=== PATIENT | male | born 1990 | race Caucasian/White ===

== ENCOUNTER 2019-05-18 15:01 | Emergency (ER) | payer MEDICAID ==
[~2019-05-18] VITALS: Ht 162.6 cm; Wt 70.8 kg
[2019-05-18 15:08] VITALS: BP 134/88
--- NOTE | 2019-05-18 15:21 | NUR ---
bs 108
[2019-06-04] MEDS ORDERED: CHLO25CA22 PO (11:12)
[2019-06-04] MEDS ORDERED: Folic Acid PO (11:12)
[2019-06-04] MEDS ORDERED: Thiamine HCL PO (11:12)
== END 2019-05-18 19:22 | disposition home or self-care (01) ==
LOC: ER 15:03 → EDBD 15:03 → ER 19:22
DX: T51.8X1A Toxic effect of other alcohols, accidental (unintentional), initial encounter (principal); Y92.89 Other specified places as the place of occurrence of the external cause
CPT/HCPCS: 82962-TC

== ENCOUNTER 2019-05-29 15:58 | Inpatient (IN) | payer MEDICAID ==
[~2019-05-29] VITALS: Ht 175.3 cm; Wt 91.6 kg
[2019-05-29] MEDS ORDERED: KETOROLAC TROMETHAMINE INJ 30 MG/ML VIAL IV ONE ×2 (16:30→22:00)
[2019-05-29] MEDS ORDERED: ONDANSETRON HCL/PF 4 MG/2 ML VIAL IVP ONE (16:30)
[2019-05-29] MEDS ORDERED: IV NS 0.9% 1,000 ML BAG IV ONE ×2 (16:30→22:30)
[2019-05-29 16:46] LABS: BASOPHILS % (AUTO) 0.3 % (0.0-2.0); HEMATOCRIT 40 % (39-51); HEMOGLOBIN 13.5 g/dL (13.5-17.5); LYMPHOCYTES % (AUTO) 10.6 % (20.0-44.0); MEAN CORPUSCULAR HGB CONC 34 g/dl (31.0-36.0); MEAN CORPUSCULAR VOLUME 80 fL (80-96); MONOCYTES # (AUTO) 1.1 /CMM (0.1-1.30); MONOCYTES % (AUTO) 11.9 % (2.0-12.0); NEUTROPHILS # (AUTO) 7.3 /CMM (1.8-8.9); NEUTROPHILS % (AUTO) 77.2 % (43.0-81.0); PLATELET COUNT (AUTO) 91 /CMM (150-450); RED BLOOD CELL COUNT(AUTO) 4.98 MIL/uL (4.5-6.0); WHITE BLOOD COUNT (AUTO) 9.4 K/uL (4.3-11.0)
[2019-05-29] MEDS ORDERED: KETOROLAC TROMETHAMINE INJ 30 MG/ML VIAL ONE ×2 (16:49→22:02)
[2019-05-29 16:54] LABS: CALCIUM, SERUM 8.8 mg/dL (8.5-10.1); CARBON DIOXIDE 28 mmol/L (21-32); CHLORIDE 97 mmol/L (98-107); CREATININE 0.7 mg/dL (0.6-1.3); GLUCOSE 110 mg/dL (74-106); POTASSIUM 3.2 mmol/L (3.5-5.1); SODIUM SERUM 140 mmol/L (136-145); UREA NITROGEN, BLOOD 15 mg/dL (7-18)
[2019-05-29 17:02] LABS: ALANINE AMINOTRANSFERASE 199 U/L (12-78); ALBUMIN 3.1 g/dL (3.4-5.0); ALKALINE PHOSPHATASE 136 U/L (46-116); ASPARTATE AMINOTRANSFERASE 295 U/L (15-37); BILIRUBIN,DIRECT 0.2 mg/dL (0.0-0.2); BILIRUBIN,TOTAL 0.5 mg/dL (0.2-1.0); LIPASE 1436 U/L (73-393); TOTAL PROTEIN, SERUM 7.5 g/dL (6.4-8.2)
--- NOTE | 2019-05-29 17:07 | NUR ---
Status quo reclining in bed NO obvious distress pt served dinner
[2019-05-29 17:26] LABS: LYMPHOCYTES % (MANUAL) 10 % (16-48); MONOCYTES % (MANUAL) 7 % (0-11.0); NEUTROPHILS % (MANUAL) 83 (42-76)
[2019-05-29] MEDS ORDERED: POTASSIUM CHLORIDE 20 MEQ TAB.PRT.SR PO ONE ×2 (20:00→20:02)
[2019-05-29] MEDS ORDERED: Magnesium 1GM/D5W 100ML PREMIX PIGGYBACK IV ONE (20:00)
[2019-05-29] MEDS ORDERED: Magnesium 1GM/D5W 100ML PREMIX 100 ML IV ONE (20:02)
--- NOTE | 2019-05-29 20:04 | NUR ---
Patient is resting comfortably in bed with eyes closed. Easily aroused. VSS. NO ACUTE DISTRESS NOTED AT THIS TIME. AOX4. VSS
--- NOTE | 2019-05-29 22:00 | NUR ---
PT MEDICATED ORDERED. -ACUTE DISTRESS NOTED. AOX4. VSS. AMBULATORY. GIVEN FOOD/DRINK. WILL CONTINUE TO MONITOR.
[2019-05-29] MEDS ORDERED: LORAZEPAM 1 MG TABLET ONE (22:11)
[2019-05-29] MEDS ORDERED: LORAZEPAM INJ 2 MG/ML VIAL IV ONE (22:30)
[2019-05-29] MEDS ORDERED: LORAZEPAM 1 MG TABLET PO ONE (22:30)
[2019-05-29 23:01] LABS: APPEARANCE,URINE Clear (CLEAR); BILIRUBIN,URINE Negative (NEGATIVE); BLOOD, URINE Moderate Ery/uL (NEGATIVE); COLOR,URINE Yellow (YELLOW); KETONES,URINE Trace (NEGATIVE); LEUKOCYTE ESTERASE ,URINE Negative (NEGATIVE); NITRITE, URINE Negative (NEGATIVE); PH,URINE 8.5 (5.0-8.0); PROTEIN,URINE 100 mg/dl (NEGATIVE); UGLUCOSE Negative (NEGATIVE)
[2019-05-29] MEDS ORDERED: Z GUARD REMEDY 2 OZ OINT TP PRN (23:30)
[2019-05-29] MEDS: Thiamine 100 MG in IV D5W 50 ML IV SCH (23:30)
[2019-05-29] MEDS ORDERED: IV NS 0.9% 1,000 ML IV PRN (23:30)
[2019-05-29] MEDS ORDERED: MAGNESIUM HYDROXIDE 30 ML UDC PO PRN (23:30)
[2019-05-29] MEDS ORDERED: FOLIC ACID 1 MG TABLET PO ONE (23:30)
--- NOTE | 2019-05-29 23:44 | NUR ---
Patient is resting comfortably in bed with eyes closed. Easily aroused. VSS. AOX4. -ACUTE DISTRESS NOTED AT THIS TIME. WILL CONTINUE TO MONITOR.
[2019-05-29 23:47] LABS: BACTERIA,URINE None seen /HPF (None Seen); MUCUS,URINE Few /LPF (None Seen); SQUAMOUS EPITHELIAL CELL,UR Few /HPF (None Seen); URINE AMORPHOUS PHOSPHATES Many /HPF (None Seen); WBC,URINE 0-2 /HPF (0-3)
[2019-05-30] MEDS ORDERED: BISACODYL SUPP (10 MG) 10 MG/SUPP.RECT SUPP.RECT RC ONE
--- NOTE | 2019-05-30 00:03 | NUR ---
Patient is resting comfortably in bed with eyes closed. Easily aroused. VSS
[2019-05-30] MEDS ORDERED: FOLIC ACID 1 MG TABLET ONE (00:21)
[2019-05-30] MEDS ORDERED: Thiamine 100 MG/ML VIAL ONE (00:21)
[2019-05-30] MEDS ORDERED: MORPHINE SULFATE INJ 4 MG/ML DISP.SYRIN ONE (00:22)
[2019-05-30] MEDS ORDERED: ONDANSETRON HCL/PF 4 MG/2 ML VIAL ONE (00:22)
[2019-05-30] MEDS ORDERED: MAG HYDROX/AL HYDROX/SIMETH 30 ML UDC ONE (03:13)
[2019-05-30] MEDS: MAG HYDROX/AL HYDROX/SIMETH 30 ML UDC PO PRN (03:14)
[2019-05-30] MEDS: LORAZEPAM INJ 2 MG/ML VIAL IV PRN ×5 (04:47→22:33)
[2019-05-30] MEDS ORDERED: LORAZEPAM INJ 2 MG/ML VIAL ONE ×2 (04:48→06:27)
--- NOTE | 2019-05-30 05:02 | NUR ---
PER HOUSE SUP. ROOMS WILL BE AVAILABLE IN THE MORNING AFTER 0700
[2019-05-30 05:26] LABS: BASOPHILS % (AUTO) 0.1 % (0.0-2.0); EOSINOPHILS % (AUTO) 0.1 % (0.0-6.0); HEMATOCRIT 37 % (39-51); HEMOGLOBIN 12.8 g/dL (13.5-17.5); LYMPHOCYTES # (AUTO) 0.9 /CMM (0.8-4.8); LYMPHOCYTES % (AUTO) 8.9 % (20.0-44.0); MEAN CORPUSCULAR HGB CONC 34 g/dl (31.0-36.0); MEAN CORPUSCULAR VOLUME 80 fL (80-96); MONOCYTES # (AUTO) 1.2 /CMM (0.1-1.30); MONOCYTES % (AUTO) 12.1 % (2.0-12.0); NEUTROPHILS # (AUTO) 8.1 /CMM (1.8-8.9); NEUTROPHILS % (AUTO) 78.8 % (43.0-81.0); PLATELET COUNT (AUTO) 87 /CMM (150-450); RED BLOOD CELL COUNT(AUTO) 4.67 MIL/uL (4.5-6.0); WHITE BLOOD COUNT (AUTO) 10.2 K/uL (4.3-11.0)
[2019-05-30 05:34] LABS: BILIRUBIN,DIRECT 0.4 mg/dL (0.0-0.2); CALCIUM, SERUM 8.4 mg/dL (8.5-10.1); CREATININE 1.2 mg/dL (0.6-1.3); MAGNESIUM 1.3 mg/dL (1.8-2.4); PHOSPHORUS 3.2 mg/dL (2.5-4.9); POTASSIUM 3.2 mmol/L (3.5-5.1)
[2019-05-30 05:44] LABS: THYROID STIMULATING HORMONE 1.439 uIU/mL (0.358-3.74)
--- NOTE | 2019-05-30 06:17 | NUR ---
Patient is resting comfortably in bed with eyes closed. Easily aroused. VSS. PT AMBULATORY TO RESTROOM.
[2019-05-30] MEDS ORDERED: LORAZEPAM INJ 2 MG/ML VIAL IV ONE (06:30)
[2019-05-30] MEDS ORDERED: IV NS 0.9% 500 ML BAG IV ONE (06:30)
[2019-05-30] MEDS ORDERED: POTASSIUM CHLORIDE 20 MEQ TAB.PRT.SR PO ONE (07:30)
--- NOTE | 2019-05-30 07:45 | NUR ---
BED 794-2
--- NOTE | 2019-05-30 08:08 | NUR ---
REPORT GIVEN TO JESSI PILLAI FOR ANDREINA
--- NOTE | 2019-05-30 08:28 | NUR ---
PATIENT TRANSFERRED TO [place] [address]-2 VIA ACLS PROTOCOL. NO DISTRESS NOTED. PATIENT A/OX4, AMBULATORY WITH STEADY GAIT. NEEDS ATTENDED, ENDORSED TO JESSI.
--- NOTE | 2019-05-30 08:45 | NUR ---
RN ADMITTING NOTES ADMITTED A 29 YEARS OLD, MALE TO UNIT VIA GURNEY ACCOMPANIED BY 2 HOSPITAL STAFF. A.O X4. ABLE TO MAKE NEEDS KNOWN. NO SIGNS OF DISTRESS NOTED AT THIS TIME. ON TELE MONITORING WITH CURRENT READING OF SR, HR OF 90'S. V/S TAKEN, STABLE AND RECORDED. ORIENTED TO UNIT, ROOM AND STAFF. REFUSED SKIN ASSESSMENT ON OTHER PARTS OF THE BODY BUT ALLOW PICTURES ON BLE. TOOK PICTURES AND FILED ON CHART. LUNGS CLEAR ON AUSCULTATION. IV ACCESS ON LEFT AC. PATENT AND INTACT. IVF TO BE STARTED. SAFETY MEASURES IN PLACE, BED PLACED IN LOWEST LOCKED POSITION WITH SIDE RAILS UP X2. CALL LIGHT PLACED WITHIN EASY REACH. WILL CONTINUE TO MONITOR.
[2019-05-30] MEDS: MORPHINE SULFATE INJ 2 MG/ML DISP.SYRIN IV PRN ×2 (08:57→20:16)
[2019-05-30] MEDS: FAMOTIDINE (20 MG) 20 MG TABLET PO SCH ×2 (09:00→16:43)
[2019-05-30] MEDS: DOCUSATE SODIUM 100 MG CAPSULE PO SCH ×2 (09:00→16:43)
[2019-05-30] MEDS: IV NS 0.9% 1,000 ML IV PRN (09:02)
[2019-05-30] MEDS: Magnesium 1GM/D5W 100ML PREMIX 100 ML IV SCH ×4 (11:02→14:08)
[2019-05-30 12:59] VITALS: BP 128/80
[2019-05-30 16:00] VITALS: BP 161/77
[2019-05-30 16:02] LABS: APPEARANCE,URINE SL CLOUDY (CLEAR); BILIRUBIN,URINE NEGATIVE (NEGATIVE); BLOOD, URINE TRACE-INTA Ery/uL (NEGATIVE); COLOR,URINE YELLOW (YELLOW); KETONES,URINE 40 (NEGATIVE); LEUKOCYTE ESTERASE ,URINE NEGATIVE (NEGATIVE); NITRITE, URINE NEGATIVE (NEGATIVE); PH,URINE 8.5 (5.0-8.0); PROTEIN,URINE NEGATIVE (NEGATIVE); UGLUCOSE NEGATIVE (NEGATIVE)
[2019-05-30 16:08] LABS: RBC,URINE 0-2 /HPF (0-2)
[2019-05-30 16:09] LABS: BACTERIA,URINE 1+ /HPF (None Seen); SQUAMOUS EPITHELIAL CELL,UR Few /HPF (None Seen); URINE AMORPHOUS PHOSPHATES Moderate /HPF (None Seen); WBC,URINE NONE SEEN /HPF (0-3)
[2019-05-30 16:10] LABS: EOSINOPHIL,URINE None Seen
[2019-05-30 16:14] LABS: CREATININE, URINE 81.9 MG/DL (30.0-125.0); URINE TOTAL PROTEIN 36.7 mg/dL (0-11.9)
--- NOTE | 2019-05-30 19:01 | NUR ---
RN CLOSING NOTES PATIENT IN BED RESTING COMFORTABLY IN MODERATE HIGH BACK REST. A.O X4. ABLE TO MAKE NEEDS KNOWN. NO SIGNS OF DISTRESS NOTED THROUGHOUT THE SHIFT. IV FLUIDS ON LEFT AC #20 WITH NS RUNNING @150ML/HR.. PATENT AND INTACT. SAFETY MEASURES IN PLACE, BED PLACED IN LOWEST LOCKED POSITION WITH SIDE RAILS UP X2. CALL LIGHT WITHIN REACH. WILL ENDORSE TO DIRECTOR PRIVATE MUSIC THERAPY AGENCY NURSE FOR ANDREINA.
--- NOTE | 2019-05-30 19:40 | NUR ---
RN OPENING NOTES RECEIVED REPORT FROM DAYSHIFT FREYA BOWEN. FOUND Pt AWAKE, RESTING IN BED, WATCHING TV. NO S/S OF ACUTE DISTRESS OR SOB NOTED. Pt IS A/OX4, ARABIC SPEAKING ONLY, ABLE TO MAKE NEEDS KNOWN IN ARABIC AND COMMUNICATE ONLY IN ARABIC. IV ACCESS ON LAC #20G, IVF NS RUNNING @150ML/HR, INFUSING WELL. SAFETY MEASURES IN PLACE. BED LOW, LOCKED, HOB ELEVATED, SIDE RAILS UP, CALL LIGHT AND BEDSIDE TABLE WITHIN REACH. WILL CONTINUE TO MONITOR Pt's CONDITION AND SAFETY THROUGHOUT THE NIGHT.
[2019-05-30 20:00] VITALS: BP 143/82
[2019-05-30] MEDS: ONDANSETRON HCL/PF 4 MG/2 ML VIAL IVP PRN (20:16)
--- NOTE | 2019-05-30 20:30 | NUR ---
RN NOTES ORAL TEMP OF 99.7. Pt IS CURRENTLY NPO. PROVIDED ICE PACKS & COOLING MEASURES WITH A COLD BED BATH. WILL RECHECK TEMP.
--- NOTE | 2019-05-30 21:30 | NUR ---
RN NOTES RECHECKED ORAL TEMP AFTER COOLING MEASURES PROVIDED. ORAL TEMP 98.1F
[2019-05-30] MEDS: Thiamine 100 MG in IV D5W 50 ML IV SCH (22:33)
[2019-05-31] MEDS: IV NS 0.9% 1,000 ML IV PRN ×2 (01:03→12:03)
[2019-05-31] MEDS: LORAZEPAM INJ 2 MG/ML VIAL IV PRN ×3 (02:03→15:42)
[2019-05-31] MEDS: MORPHINE SULFATE INJ 2 MG/ML DISP.SYRIN IV PRN (04:22)
[2019-05-31 06:14] LABS: BASOPHILS % (AUTO) 0.1 % (0.0-2.0); EOSINOPHILS % (AUTO) 0.3 % (0.0-6.0); HEMATOCRIT 37 % (39-51); HEMOGLOBIN 12.8 g/dL (13.5-17.5); LYMPHOCYTES # (AUTO) 1.5 /CMM (0.8-4.8); LYMPHOCYTES % (AUTO) 16.1 % (20.0-44.0); MEAN CORPUSCULAR HGB CONC 34 g/dl (31.0-36.0); MEAN CORPUSCULAR VOLUME 80 fL (80-96); MONOCYTES # (AUTO) 1.3 /CMM (0.1-1.30); MONOCYTES % (AUTO) 14.3 % (2.0-12.0); NEUTROPHILS # (AUTO) 6.4 /CMM (1.8-8.9); NEUTROPHILS % (AUTO) 69.2 % (43.0-81.0); PLATELET COUNT (AUTO) 106 /CMM (150-450); RED BLOOD CELL COUNT(AUTO) 4.64 MIL/uL (4.5-6.0); WHITE BLOOD COUNT (AUTO) 9.2 K/uL (4.3-11.0)
--- NOTE | 2019-05-31 06:35 | NUR ---
RN CLOSING NOTES NO OTHER SIGNIFICANT CHANGES IN Pt's CONDITION. Pt's VS REMAINED STABLE. TEMP REMAINED STABLE @98.1F S/P COOLING MEASURES. ALL NEEDS MET AND ATTENDED TO. SAFETY MEASURES IN PLACE. WILL ENDORSE TO DAYSHIFT RN FOR Pt's ANDREINA.
[2019-05-31 06:53] LABS: ALBUMIN 3.1 g/dL (3.4-5.0); BILIRUBIN,TOTAL 1.1 mg/dL (0.2-1.0); CALCIUM, SERUM 8.6 mg/dL (8.5-10.1); CREATININE 0.7 mg/dL (0.6-1.3); MAGNESIUM 1.9 mg/dL (1.8-2.4); PHOSPHORUS 3.1 mg/dL (2.5-4.9); POTASSIUM 2.9 mmol/L (3.5-5.1); TOTAL PROTEIN, SERUM 7.4 g/dL (6.4-8.2)
--- NOTE | 2019-05-31 07:32 | NUR ---
RN NOTES NEW IV ACCESS STARTED ON RHAND #22G
--- NOTE | 2019-05-31 08:43 | NUR ---
MS RN OPENING NOTES RECEIVED PATIENT IN BED, AWAKE, A/O X3. PATIENT IS ON ROOM AIR BREATHING EVENLY WITH NO SIGN OF SOB AT THIS TIME. PATIENT DOES NOT COMPLAIN OF ANY PAIN. SL ON R HAND # 22 PRESENT AND INTACT. SAFETY PRECAUTIONS IN PLACE, BED IN LOW POSITION AND LOCKED, HOB ELEVATED AT 45 DEGREES, RAILS UP X 2, CALL LIGHT WITHIN REACH. WILL CONTINUE TO MONITOR PATIENT.
[2019-05-31] MEDS: DOCUSATE SODIUM 100 MG CAPSULE PO SCH ×2 (09:00→17:00)
[2019-05-31] MEDS: FAMOTIDINE (20 MG) 20 MG TABLET PO SCH ×2 (09:00→17:00)
--- NOTE | 2019-05-31 09:24 | NUR ---
MS RN NOTES PATIENT BECAME ANXIOUS AND AGITATED. PATIENT STATES HE HEARS VOICES WHEN HE IS CLOSING HIS EYES. ADMINISTERED PRN ATIVAN AND NOTIFIED MD REGARDING HIS CONDITION. WILL CONTINUE TO MONITOR PATIENT.
[2019-05-31 10:36] VITALS: BP 126/93
[2019-05-31] MEDS: POTASSIUM CL. PREMIX PERIPHER. 50 ML IV SCH ×3 (11:30→13:50)
--- NOTE | 2019-05-31 12:00 | NUR ---
Social service consult requested by Dr. Robles for homelessness and alcohol abuse. Per chart review and MD notes, pt. is a 29-year-old male who denies any medical history and who presented to the ER yesterday after being brought in by EMS from streets for alcohol the patient and epigastric pain. At time of admission, pt appeared intoxicated and had heavy odor of alcohol on his breath. MANAGER PIPELINE met with the pt. bedside and introduced herself and her role. Pt. has a sitter bedside for safety. Pt. is Kazakh speaking only. Kaleb Harmon assisted in translation. Pt. is alert and oriented x 3. Pt. appears to be having alcohol withdrawals. Pt appears to be fixated on his symptoms. MANAGER PIPELINE had to redirect pt several times. Pt. states he has been homeless for the past 3 weeks. Prior to being homeless, pt was [facility] [address] [facility]. Pt. drinks alcohol on a daily basis and has been drinking for since April. Pt. states, he drinks all kinds of alcohol. Pt. denies any drug and cigarette use at this time. Pt. states he is feeling depressed and anxious. Pt currently denies any suicidal and homicidal ideations and visual/auditory hallucinations at this time. MANAGER PIPELINE to discuss discharge plan with pt. at a later time when pt. is medically and psychiatrically cleared. Pt. is awaiting a psychiatry consult. No other social service needs are requested at this time. MANAGER PIPELINE is available, if needed.
[2019-05-31] MEDS ORDERED: Folic acid 1 MG in IV D5W 50 ML IV SCH (12:30)
[2019-05-31] MEDS: CHLORDIAZEPOXIDE HCL 25 MG CAPSULE PO SCH ×2 (13:00→22:25)
--- NOTE | 2019-05-31 17:12 | NUR ---
MS RN NOTES JUST RECEIVED A CALL FROM THE LAB AT 1708 FROM [facility], REGARDING A CRITICAL LAB VALUE OF ELEVATED CK-MB OF 38.6 ARTURO ORTEGA NOTIFIED AT 1710
--- NOTE | 2019-05-31 18:56 | NUR ---
MS RN NOTES PATIENT WAS SEEN AND EVALUATED TODAY BY DR. WATT. HE SAID THE PATIENT IS NEAR HIS DTs AND SUGGESTED CONTACTING HIS PRIMARY PHYSICIAN TO INCREASE ATIVAN TO 2 MG Q HR PRN. PRIMARY CONTACTED. AWAITING REPLY.
--- NOTE | 2019-05-31 19:11 | NUR ---
MS RN CLOSING NOTES PATIENT IN BED, AWAKE, A/O X 1, CONFUSED AT TIMES AND IN WITHDRAWAL. PATIENT IS ON ROOM AIR BREATHING EVENLY WITH NO SIGN OF SOB AT THIS TIME. PATIENT IS PAIN FREE AT THIS TIME. HE BECOMES AGITATED AND ANXIOUS AT TIMES AND HE PULLED HIS IV TWICE TODAY WITH REFUSAL OF REINSERTION. HE CALMS DOWN WITH PRN IV AND A NEW LINE WAS STARTED ON LAC # 20. NS INFUSING AT 100 MLS/HR. PATIENT EVALUATED BY PSYCHIATRIST TODAY. PRIMARY NOTIFIED. PATIENT HAS A 1:1 SITTER. REMAINS NPO. SAFETY PRECAUTIONS IN PLACE, BED IN LOW POSITION AND LOCKED, RAILS UP X 2, CALL LIGHT WITHIN REACH. ALL NEEDS ATTENDED TO. WILL ENDORSE TO [employer] FOUNTAIN CLERK.
--- NOTE | 2019-05-31 19:35 | NUR ---
RN OPENING NOTES RECEIVED REPORT FROM [facility] FREYA CANA[place]. FOUND Pt AWAKE, RESTING IN BED, WATCHING TV. SITTER AT BEDSIDE. NO S/S OF ACUTE DISTRESS OR SOB NOTED. Pt IS A/OX2-3, WITH SOME FORGETFULNESS. CYMRAES SPEAKING ONLY, ABLE TO MAKE NEEDS KNOWN IN [place]RAES AND COMMUNICATE ONLY IN [place]MRAES. IV ACCESS ON RAC #20G, IVF NS RUNNING @100ML/HR, INFUSING WELL. SAFETY MEASURES IN PLACE. BED LOW, LOCKED, HOB ELEVATED, SIDE RAILS UP, CALL LIGHT AND BEDSIDE TABLE WITHIN REACH. WILL CONTINUE TO MONITOR Pt's CONDITION AND SAFETY THROUGHOUT THE NIGHT.
[2019-05-31 20:00] VITALS: BP 145/82
[2019-05-31] MEDS: Potassium Chloride 10 MEQ, LIDOCAINE HCL/PF 1% 1 ML in IV D5W 50 ML IV SCH ×2 (22:14→23:11)
[2019-06-01] MEDS: Potassium Chloride 10 MEQ, LIDOCAINE HCL/PF 1% 1 ML in IV D5W 50 ML IV SCH ×2 (00:12→01:13)
[2019-06-01] MEDS: OLANZAPINE 5 MG/TAB.RAPDIS PO PRN ×2 (00:35→20:25)
--- NOTE | 2019-06-01 00:40 | NUR ---
RN NOTES Pt IS BECOMING INCREASINGLY AGITATED AND PARANOID. Pt IS STATING THAT WE ARE GOING TO KILL HIM AND THAT WE ARE GOING TO CALL THE POLICE ON HIM AND GET HIM DEPORTED. ADMINISTERED ZYPREXA 5MG ORDERED BY PSYSCH DR WATT FOR PRN USE Q12H.
[2019-06-01] MEDS: Thiamine 100 MG in IV D5W 50 ML IV SCH ×2 (01:14→23:30)
[2019-06-01] MEDS: MORPHINE SULFATE INJ 2 MG/ML DISP.SYRIN IV PRN ×2 (02:59→08:42)
[2019-06-01] MEDS: CHLORDIAZEPOXIDE HCL 25 MG CAPSULE PO SCH ×3 (04:25→20:14)
[2019-06-01] MEDS: ONDANSETRON HCL/PF 4 MG/2 ML VIAL IVP PRN (05:39)
--- NOTE | 2019-06-01 06:00 | NUR ---
RN NOTES WAITING TO HEAR BACK FROM JOSE MENDEZ. Pt ATTEMPTED TO FLEE, RAN PAST THE SITTER & RAN OUT FROM HIS ROOM DOWN THE [place]. Pt's PRN ATIVAN HAS BEEN DC'd, WILL SEE IF Pt CAN GET A PRN ORDER.
--- NOTE | 2019-06-01 06:45 | NUR ---
RN NOTES INFORMED DR. ENEDELIA MENDEZ OF Pt's BEHAVIORAL PROBLEMS, BEING AGITATED AND AGGRESSIVE AND ATTEMPTING TO FLEE. VERBAL ORDER GIVEN FROM DR MENDEZ TO GIVE Pt X1 DOSE OF ZYPREXA 5MG IM. WILL CARRY OUT ORDER.
[2019-06-01] MEDS ORDERED: OLANZAPINE 10 MG VIAL IM ONE (07:00)
--- NOTE | 2019-06-01 07:02 | NUR ---
RN CLOSING NOTES NO S/S OF ACUTE DISTRESS OR SOB NOTED DURING THE SHIFT. Pt HAS BEEN AWAKE ALL NIGHT. ALL NEEDS MET AND ATTENDED TO. SAFETY MEASURES IN PLACE. SITTER AT BEDSIDE. CARRIED OUT ALL ORDERS GIVEN. WILL ENDORSE TO DAYSHIFT RN FOR Pt's ANDREINA.
--- NOTE | 2019-06-01 07:05 | NUR ---
RN NOTES ADMINISTERED ZYPREXA 5M IM X1 DOSE PER MD ORDER.
[2019-06-01 08:00] VITALS: BP 111/90
[2019-06-01 08:16] LABS: CALCIUM, SERUM 9.3 mg/dL (8.5-10.1); CREATININE 0.7 mg/dL (0.6-1.3); POTASSIUM 3.8 mmol/L (3.5-5.1)
[2019-06-01] MEDS: FAMOTIDINE (20 MG) 20 MG TABLET PO SCH ×2 (08:41→17:00)
[2019-06-01] MEDS: DOCUSATE SODIUM 100 MG CAPSULE PO SCH ×2 (08:41→17:00)
[2019-06-01] MEDS: LORAZEPAM INJ 2 MG/ML VIAL IV PRN ×2 (09:40→22:45)
[2019-06-01] MEDS ORDERED: Folic acid 1 MG in IV D5W 50 ML IV SCH (14:00)
[2019-06-01 16:00] VITALS: BP_SYST 110
[2019-06-01] MEDS: IV NS 0.9% 1,000 ML IV PRN (19:43)
--- NOTE | 2019-06-01 19:45 | NUR ---
MS RN OPENING NOTES PATIENT RECEIVED RESTING COMFORTABLY IN BED; NO S/S OF ACUTE RESPIRATORY DISTRESS NOTED; BREATHING EVEN AND UNLABORED; A/O X3, [place] SPEAKING; RAC #20 FLUSHING WELL; NO S/S OF REDNESS OR INFILTRATION; PATIENT REFUSED SKIN ASSESSMENT; SAFETY PRECAUTIONS IN PLACE, BED LOCKED IN LOW POSITION; BILATERAL UPPER SIDE RAILS UP; CALL LIGHT WITHIN EASY REACH; SITTER AT BEDSIDE; WILL CONTINUE TO MONITOR.
[2019-06-01 20:00] VITALS: BP 144/90
--- NOTE | 2019-06-01 20:30 | NUR ---
MS RN NOTES PATIENT AGITATED; ZYPREXA 5MG PO GIVEN. WILL CONTINUE TO MONITOR.
--- NOTE | 2019-06-01 22:45 | NUR ---
MS RN NOTES ATIVAN 2MG GIVEN IV PUSH; PATIENT ANXIOUS; VITALS BP: 134/75, PULSE: 102 BPM, RR: 18. SP02: 99% ON RA. WILL CONTINUE TO MONITOR.
[2019-06-02] MEDS: LORAZEPAM INJ 2 MG/ML VIAL IV PRN ×3 (02:37→21:03)
--- NOTE | 2019-06-02 02:38 | NUR ---
MS RN NOTES ATIVAN ADMINISTERED; PATIENT AGITATED/ANXIOUS. WILL CONTINUE TO MONITOR.
[2019-06-02] MEDS: CHLORDIAZEPOXIDE HCL 25 MG CAPSULE PO SCH ×3 (05:12→20:01)
--- NOTE | 2019-06-02 06:29 | NUR ---
MS RN CLOSING NOTES PATIENT RESTING COMFORTABLY IN BED; NO S/S OF ACUTE RESPIRATORY DISTRESS NOTED; BREATHING EVEN AND UNLABORED; PATIENT A/O X1, HAS CONTINUED CONFUSION AND AGITATION; R AC #20 INTACT AND PATENT, FLUSHING WELL; PATIENT REFUSED IV FLUIDS; PATIENT REFUSED SKIN ASSESSMENT; SITTER AT BED SIDE; ALL NEEDS ATTENDED TO; SAFETY PRECAUTIONS IN PLACE; BED LOCKED IN LOW POSITION, BILATERAL UPPER SIDE RAILS X2; CALL LIGHT WITHIN REACH; WILL ENDORSE CONTINUITY OF CARE TO ONCOMING SHIFT.
--- NOTE | 2019-06-02 07:30 | NUR ---
MS RN OPENING NOTE PATIENT IN ROOM SITTING IN CHAIR WITH ONE TO ONE SITTER. PATIENT IN NO ACUTE DISTRESS. NO SOB NOTED. PATIENT BREATHING IS EVEN AND UNLABORED. PATIENT SAFETY PRECAUTIONS IN PLACE. PATIENT BED IS LOCKED AND IN LOWEST POSITION. CALL LIGHT WITHIN REACH. WILL CONTINUE TO MONITOR.
[2019-06-02 07:50] LABS: BASOPHILS % (AUTO) 0.1 % (0.0-2.0); EOSINOPHILS % (AUTO) 0.6 % (0.0-6.0); HEMATOCRIT 40 % (39-51); HEMOGLOBIN 13.9 g/dL (13.5-17.5); LYMPHOCYTES # (AUTO) 1.8 /CMM (0.8-4.8); LYMPHOCYTES % (AUTO) 19.3 % (20.0-44.0); MEAN CORPUSCULAR HGB CONC 34 g/dl (31.0-36.0); MEAN CORPUSCULAR VOLUME 82 fL (80-96); MONOCYTES # (AUTO) 2.1 /CMM (0.1-1.30); MONOCYTES % (AUTO) 22.9 % (2.0-12.0); NEUTROPHILS # (AUTO) 5.3 /CMM (1.8-8.9); NEUTROPHILS % (AUTO) 57.1 % (43.0-81.0); PLATELET COUNT (AUTO) 234 /CMM (150-450); RED BLOOD CELL COUNT(AUTO) 4.94 MIL/uL (4.5-6.0); WHITE BLOOD COUNT (AUTO) 9.2 K/uL (4.3-11.0)
[2019-06-02 07:54] LABS: CALCIUM, SERUM 9.5 mg/dL (8.5-10.1); CREATININE 0.9 mg/dL (0.6-1.3); PHOSPHORUS 4.4 mg/dL (2.5-4.9); POTASSIUM 4.1 mmol/L (3.5-5.1)
[2019-06-02 08:00] VITALS: BP 132/70
[2019-06-02] MEDS: FAMOTIDINE (20 MG) 20 MG TABLET PO SCH ×2 (08:16→16:27)
[2019-06-02] MEDS: DOCUSATE SODIUM 100 MG CAPSULE PO SCH ×2 (08:16→16:27)
[2019-06-02] MEDS: THIAMINE HCL 100 MG TABLET PO SCH (09:06)
[2019-06-02] MEDS: FOLIC ACID 1 MG TABLET PO SCH (09:06)
[2019-06-02 09:59] LABS: BAND % (MANUAL) 1 % (0.0-5.0); LYMPHOCYTES % (MANUAL) 21 % (16-48); MONOCYTES % (MANUAL) 17 % (0-11.0); NEUTROPHILS % (MANUAL) 61 (42-76)
--- NOTE | 2019-06-02 13:48 | NUR ---
MS RN NOTE PATIENT IS STATING HE IS ANXIOUS AND RESTLESS. BP IS 132/71, HR IS 107. ATIVAN 2MG IV GIVEN. WILL CONTINUE TO MONITOR.
--- NOTE | 2019-06-02 15:47 | NUR ---
MS RN NOTE SPOKE WITH TRACEY, HERSON GARCIA TO UPGRADE DIET TO SOFT DIET.
[2019-06-02 16:00] VITALS: BP 142/68
--- NOTE | 2019-06-02 16:31 | NUR ---
MS RN NOTE PATIENT REFUSING IV FLUIDS. PATIENT DRINKING WATER THROUGHOUT SHIFT. PATIENT IN NO ACUTE DISTRESS. PATIENT REFUSING SKIN ASSESSMENT. EDUCATED RISKS VS BENEFITS. PATIENT CONTINUED TO REFUSE. WILL CONTINUE TO MONITOR.
--- NOTE | 2019-06-02 17:29 | NUR ---
MS RN NOTE PATIENT NOW COMPLIANT WITH IV FLUIDS AT THIS TIME.
--- NOTE | 2019-06-02 18:16 | NUR ---
MS RN CLOSING NOTE PATIENT IN BED RESTING COMFORTABLY. PATIENT IN NO ACUTE DISTRESS. NO SOB NOTED. PATIENT BREATHING IS EVEN AND UNLABORED. PATIENT MAINTAINED ON A 1:1 SITTER. PATIENT KEPT CLEAN AND DRY MUCH PATIENT WOULD ALLOW. PATIENT BED IS LOCKED AND IN LOWEST POSITION. SAFETY PRECAUTIONS IN PLACE. NEEDS AND CONCERNS ADDRESSED. CALL LIGHT WITHIN REACH. WILL ENDORSE CARE TO PM SHIFT FOR ANDREINA.
--- NOTE | 2019-06-02 19:50 | NUR ---
MS RN OPENING NOTES PATIENT RESTING IN BED COMFORTABLY; SITTER AT BED SIDE; NO S/S OF ACUTE RESPIRATORY DISTRESS NOTED; BREATHING EVEN AND UNLABORED; PATIENT AWAKE, A/O X1-2, CONFUSED; PATIENT REFUSING SKIN ASSESSMENT; R AC #20 INTACT AND PATENT; FLUSHING WELL, NO S/S OF REDNESS OR INFILTRATION NOTED; SAFETY PRECAUTIONS IN PLACE; BED LOCKED IN LOW POSITION; CALL LIGHT WITHIN REACH; WILL CONTINUE TO MONITOR.
[2019-06-02 20:00] VITALS: BP 125/73
--- NOTE | 2019-06-02 21:03 | NUR ---
MS RN NOTES PATIENT ANXIOUS; ATIVAN 1ML IV PUSH GIVEN, WILL CONTINUE TO MONITOR
[2019-06-02] MEDS: OLANZAPINE 5 MG/TAB.RAPDIS PO PRN (22:06)
[2019-06-03] MEDS: MAG HYDROX/AL HYDROX/SIMETH 30 ML UDC PO PRN
[2019-06-03] MEDS: LORAZEPAM INJ 2 MG/ML VIAL IV PRN (00:09)
--- NOTE | 2019-06-03 00:10 | NUR ---
MS RN NOTES ATIVAN ADMINISTERED; PATIENT ANXIOUS AND UNABLE TO SLEEP; WILL CONTINUE TO MONITOR
[2019-06-03] MEDS: CHLORDIAZEPOXIDE HCL 25 MG CAPSULE PO SCH ×3 (04:23→20:47)
--- NOTE | 2019-06-03 07:12 | NUR ---
MS RN CLOSING NOTES PATIENT AWAKE, A/O X1-2; PATIENT IS CONFUSED AND ANXIOUS; PATIENT SITTING IN CHAIR; BREATHING EVEN AND UNLABORED; NO S/S OF ACUTE RESPIRATORY DISTRESS NOTED; SITTER WITH PATIENT; R AC #20 REMOVED; R HAND #22 INTACT AND PATENT; FLUSHING WELL; NO S/S OF REDNESS OR INFILTRATION; ALL NEEDS ATTENDED TO. WILL ENDORSE CONTINUITY OF CARE TO ONCOMING NURSE.
--- NOTE | 2019-06-03 07:48 | NUR ---
RN OPENING NOTE PT WAS RECEIVED IN BED AT LOWEST AND LOCKED POSITION WITH SIDE RAILS X2, A/O X1 LAO SPEAKING CONFUSED WITH SOME HALLUCINATIONS, BREATHING EVEN AND UNLABORED ON RA, NO S/S OF ANY DISTRESS OR PAIN, IV IS PATENT AND INTACT, REFUSED SKIN ASSESSMENT PER NIGHT RN, DC PLANNING, SAFETY PRECAUTIONS IN PLACE, CALL LIGHT IN REACH, WILL MONITOR ACCORDINGLY.
[2019-06-03 08:00] VITALS: BP 145/96
[2019-06-03] MEDS: FOLIC ACID 1 MG TABLET PO SCH (08:49)
[2019-06-03] MEDS: DOCUSATE SODIUM 100 MG CAPSULE PO SCH ×2 (08:49→16:02)
[2019-06-03] MEDS: THIAMINE HCL 100 MG TABLET PO SCH (08:49)
[2019-06-03] MEDS: FAMOTIDINE (20 MG) 20 MG TABLET PO SCH ×2 (08:49→16:02)
[2019-06-03 13:07] LABS: BASOPHILS % (AUTO) 0.1 % (0.0-2.0); EOSINOPHILS % (AUTO) 0.4 % (0.0-6.0); HEMATOCRIT 40 % (39-51); HEMOGLOBIN 13.6 g/dL (13.5-17.5); LYMPHOCYTES # (AUTO) 1.3 /CMM (0.8-4.8); LYMPHOCYTES % (AUTO) 17.5 % (20.0-44.0); MEAN CORPUSCULAR HGB CONC 34 g/dl (31.0-36.0); MEAN CORPUSCULAR VOLUME 82 fL (80-96); MONOCYTES # (AUTO) 1.9 /CMM (0.1-1.30); MONOCYTES % (AUTO) 25.7 % (2.0-12.0); NEUTROPHILS # (AUTO) 4.2 /CMM (1.8-8.9); NEUTROPHILS % (AUTO) 56.3 % (43.0-81.0); PLATELET COUNT (AUTO) 278 /CMM (150-450); RED BLOOD CELL COUNT(AUTO) 4.84 MIL/uL (4.5-6.0); WHITE BLOOD COUNT (AUTO) 7.5 K/uL (4.3-11.0)
[2019-06-03 13:35] LABS: CALCIUM, SERUM 9.3 mg/dL (8.5-10.1); CREATININE 0.7 mg/dL (0.6-1.3); MAGNESIUM 2.1 mg/dL (1.8-2.4); PHOSPHORUS 4.5 mg/dL (2.5-4.9); POTASSIUM 3.9 mmol/L (3.5-5.1)
[2019-06-03 14:14] LABS: LIPASE 879 U/L (73-393)
[2019-06-03 14:32] LABS: BAND % (MANUAL) 1 % (0.0-5.0); LYMPHOCYTES % (MANUAL) 20 % (16-48); NEUTROPHILS % (MANUAL) 56 (42-76)
[2019-06-03 14:33] LABS: EOSINOPHILS % (MANUAL) 1 % (0-4); MONOCYTES % (MANUAL) 22 % (0-11.0)
--- NOTE | 2019-06-03 17:25 | NUR ---
RN NOTE PT SLEPT FOR 1.5 HR AT THIS TIME
--- NOTE | 2019-06-03 18:17 | NUR ---
RN CLOSING NOTE PT IN BED AT LOWEST AND LOCKED POSITION WITH SIDE RAILS X2, A/O X2 WELSH SPEAKING BREATHING EVEN AND UNLABORED WITH NO S/S OF DISTRESS OR PAIN, IV IS PATENT AND INTACT, PT SLEPT FOR 1.5 HR THIS SHIFT, SITTER AT BEDSIDE, SAFETY PRECAUTIONS IN PLACE, CALL LIGHT IN REACH, ALL NEEDS ATTENDED TO, WILL ENDORSE TO NIGHT RN FOR ANDREINA.
--- NOTE | 2019-06-03 19:20 | NUR ---
MS RN OPENING NOTE RECEIVED PATIENT IN BED. A/OX1 -2, VERY CONFUSED. TOLERATING ROOM AIR. RESPIRATIONS ARE EVEN AND UNLABORED. NO S/S SOB NOTED. DENIES PAIN AT THIS TIME. IN NO APPARENT DISTRESS. SITTER AT BEDSIDE. IV ACCESS IN RIGHT HAND #22 PATENT AND SALINE LOCKED, REFUSING IVF AT THIS TIME. BED IS LOW AND LOCKED, HOB ELEVATED IN SEMI FOWLERS, SIDE RAILS UP X2, CALL LIGHT WITHIN REACH. WILL CONTINUE TO MONITOR.
[2019-06-03 20:00] VITALS: BP 130/84
[2019-06-04] MEDS: LORAZEPAM INJ 2 MG/ML VIAL IV PRN (00:18)
--- NOTE | 2019-06-04 00:23 | NUR ---
MS RN NOTE ADMINISTERED PRN ATIVAN 2MG D/T PATIENT SHOWING SIGNS OF ANXIETY, CONSTANT PACING, WALKING A ROUND, REORIENTING ROOM, NOT RESTING. WILL CONTINUE TO MONITOR.
[2019-06-04] MEDS: CHLORDIAZEPOXIDE HCL 25 MG CAPSULE PO SCH ×2 (06:04→13:03)
--- NOTE | 2019-06-04 07:30 | NUR ---
MS RN OPENING NOTE RECEIVED PATIENT IN BED. A/OX 2. NO SIGNS OF DISTRESS NOTED AT THIS TIME. SITTER AT BEDSIDE. IV ACCESS IN RIGHT HAND #22 PATENT AND SALINE LOCKED, REFUSING IVF SINCE LAST NIGHT. SAFETY MEASURES IN PLACE, BED IS LOW AND LOCKED, HOB ELEVATED IN SEMI FOWLERS, SIDE RAILS UP X2, CALL LIGHT WITHIN REACH. WILL CONTINUE TO MONITOR.
--- NOTE | 2019-06-04 08:04 | NUR ---
MS RN CLOSING NOTE PATIENT IS AMBULATING AROUND ROOM. A/OX1 -2, HALLUCINATING. TOLERATING ROOM AIR. RESPIRATIONS ARE EVEN AND UNLABORED. NO SOB NOTED. NO C/O PAIN THROUGHOUT SHIFT. ADMINISTERED ATIVAN BUT DID NOT MANAGE ANXIETY OR RESTLESSNESS. NO DISTRESS NOTED. SITTER AT BEDSIDE. IV ACCESS MAINTAINED IN RIGHT HAND #22 PATENT AND SALINE LOCKED, REFUSING IVF. BED IS LOW AND LOCKED, HOB ELEVATED IS FLAT, SIDE RAILS UP X2, CALL LIGHT WITHIN REACH. WILL ENDORSE TO NEXT SHIFT
[2019-06-04] MEDS: FAMOTIDINE (20 MG) 20 MG TABLET PO SCH (08:37)
[2019-06-04] MEDS: DOCUSATE SODIUM 100 MG CAPSULE PO SCH (08:37)
[2019-06-04] MEDS: THIAMINE HCL 100 MG TABLET PO SCH (08:37)
[2019-06-04] MEDS: FOLIC ACID 1 MG TABLET PO SCH (08:37)
[2019-06-04] MEDS ORDERED: CHLO25CA22 PO (11:12)
[2019-06-04] MEDS ORDERED: Thiamine HCL PO (11:12)
[2019-06-04] MEDS ORDERED: Folic Acid PO (11:12)
--- NOTE | 2019-06-04 14:15 | NUR ---
RN DISCHARGED NOTES PATIENT DISCHARGED IN STABLE CONDITION. ABLE TO MAKE NEEDS KNOWN. V/S TAKEN, STABLE AND RECORDED. PATIENT'S IV REMOVED AND APPLIED PRESSURE DRESSINGS. NAME ARM BAND REMOVED. NO BELONGINGS, PATIENT THREW AWAY EVERYTHING YESTERDAY. REFUSED TO SIGN DISCHARGE INSTRUCTIONS AND BELONGINGS. AGREED TO BE SENT TO ONE OF THE RESIDENTIAL. TAP CARD GIVEN. HEALTH TEACHINGS/ DISCHARGED INSTRUCTIONS GIVEN AND VERBALIZED UNDERSTANDING. PATIENT LEFT UNIT AMBULATORY WITH NO SIGNS OF DISTRESS NOTED. ASSISTED TO THE LOBBY. CHARGE NURSE AWARE OF DISCHARGED.
== END 2019-06-04 14:30 | disposition home or self-care (01) | DRG 282 ==
LOC: ER 16:06 → TELE 05-30 08:17 → MED 05-30 09:55
PROVIDERS: ADMIT Nurse Practitioner Acute Care; ATTEND Nurse Practitioner Acute Care
DX: K85.20 Alcohol induced acute pancreatitis without necrosis or infection (principal); F10.221 Alcohol dependence with intoxication delirium; D69.59 Other secondary thrombocytopenia; M62.82 Rhabdomyolysis; E83.42 Hypomagnesemia; F10.239 Alcohol dependence with withdrawal, unspecified; E87.6 Hypokalemia; Z59.0 Homelessness; F29 Unspecified psychosis not due to a substance or known physiological condition; K56.41 Fecal impaction; K44.9 Diaphragmatic hernia without obstruction or gangrene; Y90.8 Blood alcohol level of 240 mg/100 ml or more; K76.0 Fatty (change of) liver, not elsewhere classified; R74.0 Nonspecific elevation of levels of transaminase and lactic acid dehydrogenase [LDH]
CPT/HCPCS: 36415; 70450-TC; 71045-TC; 76705-TC; 80048-TC; 80053-TC; 80061-TC; 80076-TC; 80305; 81000-TC; 82550-TC; 82570-TC; 83690-TC; 83735-TC; 84100-TC; 84155-TC; 84300-TC; 84443-TC; 84484-TC; 85025-TC; 87081-TC; G0378; G0480; J1885; J2060; J2270; J2405; J3411; J3475; J3480; J3490; J7030; J7040; J7060